=== PATIENT | male | born 1990 | race Caucasian/White ===

== ENCOUNTER 2019-10-09 15:48 | Emergency (ER) | payer OTHER ==
[~2019-10-09] VITALS: Ht 172.7 cm; Wt 90.7 kg
[2019-10-09 16:03] VITALS: BP_SYST 151
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
--- NOTE | 2019-10-09 18:40 | NUR ---
Patient given written and verbal discharge instructions and verbalizes understanding. ER MD discussed with patient the results and treatment provided. Patient in stable condition. ID arm band removed. Rx of Soma and Motrin given. Patient educated on pain management and to follow up with PMD. Pain Scale 3/10. Opportunity for questions provided and answered. Medication side effect fact sheet provided.
[2019-10-09 19:41] VITALS: BP_SYST 143
== END 2019-10-09 18:40 | disposition home or self-care (01) ==
LOC: SED 15:48
DX: S13.4XXA Sprain of ligaments of cervical spine, initial encounter (principal); V49.49XA Driver injured in collision with other motor vehicles in traffic accident, initial encounter; Y93.89 Activity, other specified; Y92.488 Other paved roadways as the place of occurrence of the external cause; Y99.8 Other external cause status
CPT/HCPCS: 72040-TC; 72100-TC; 99284

== ENCOUNTER 2020-02-14 21:08 | Emergency (ER) | payer OTHER ==
[~2020-02-14] VITALS: Ht 172.7 cm; Wt 93.0 kg
[2020-02-14 21:23] VITALS: BP_SYST 139
--- NOTE | 2020-02-14 21:27 | NUR ---
Patient triaged and placed in waiting room. VSS and patient appears in no acute distress at this time. Accompanied by self, awaiting available bed, and MD notified of need for MSE.
--- NOTE | 2020-02-14 21:30 | NUR ---
Pt brought in by self. Pt awake, alert, oriented x4. Pt has chief complaint of headache, dizzness, lightheadedness. No syncope. No Vomiting, diarrhea, shortness of breath, chest pain, pt denies any other medical complaint at this time. Pt resting in ed without distress.
--- NOTE | 2020-02-14 21:30 | NUR ---
Patient to ER bed 02 to gown for evaluation. Side rails up.
--- NOTE | 2020-02-14 21:30 | NUR ---
Note undone in EDM - 02/14/20 at 2350 by [email or web address] Pt brought into ED by family member. Pt awake, alert, oriented x4. Pt states that she has had n/v/d x4 hours intermittent. Pt states that she began to have symptoms after eating pastrami sandwich. Pt denies chest pain, shortness of breath, blood in stool or vomit. Pt denies any other medical complaint at this time. Pt resting in ed Bed comfortably.
--- NOTE | 2020-02-14 22:00 | NUR ---
ER at bedside examining patient.
[2020-02-14] MEDS ORDERED: NACL 0.9% 1,000 ML IV ONE (22:41)
[2020-02-14] MEDS ORDERED: MECLIZINE HCL 25 MG TABLET (ANITVERT) PO ONE (22:45)
--- NOTE | 2020-02-14 23:15 | NUR ---
Pt resting in ED bed comfortably. No distress at this time.
[2020-02-14 23:32] LABS: BASOPHILS # (AUTO) 0.1 K/uL (0.0-0.2); BASOPHILS % (AUTO) 0.5 % (0.0-2.0); HEMATOCRIT 45.3 % (36-54); HEMOGLOBIN 15.4 g/dL (14.0-18.0); LYMPHOCYTES # (AUTO) 1.3 K/uL (1.0-5.5); LYMPHOCYTES % (AUTO) 12.5 % (20.5-51.5); MEAN CORPUSCULAR HEMOGLOBIN 30 pg (27-31); MEAN CORPUSCULAR HGB CONC 34 % (32-36); MEAN CORPUSCULAR VOLUME 87 fL (79.0-98.0); MONOCYTES # (AUTO) 0.5 K/uL (0.0-1.0); MONOCYTES % (AUTO) 4.8 % (1.7-9.3); NEUTROPHILS # (AUTO) 8.8 K/uL (1.8-7.7); NEUTROPHILS % (AUTO) 82.2 % (40.0-70.0); PLATELET COUNT (AUTO) 254 K/uL (130-430); RED BLOOD CELL COUNT(AUTO) 5.21 MIL/uL (4.2-6.2); RED CELL DISTRIBUTION WIDTH 13.7 % (9.0-15.0); WHITE BLOOD COUNT (AUTO) 10.8 K/uL (4.8-10.8)
[2020-02-14 23:34] LABS: BILIRUBIN,URINE NEGATIVE (NEGATIVE); BLOOD, URINE NEGATIVE (NEGATIVE); CLARITY/URINE CLEAR (CLEAR); COLOR,URINE YELLOW (YELLOW); GLUCOSE,URINE NEGATIVE (NEGATIVE); KETONES,URINE NEGATIVE (NEGATIVE); LEUKOCYTE ESTERASE ,URINE NEGATIVE (NEGATIVE); NITRITE, URINE NEGATIVE (NEGATIVE); PH,URINE 6.5 (5.0-8.0); PROTEIN URINE NEGATIVE (NEGATIVE)
[2020-02-14 23:35] LABS: CALCIUM 9.5 mg/dL (8.4-11.0); CREATININE 1.04 mg/dL (0.55-1.30); POTASSIUM 3.9 mmol/L (3.5-5.1)
[2020-02-14 23:40] LABS: ALBUMIN 4.2 g/dL (3.4-4.8); TOTAL BILIRUBIN 0.3 mg/dL (0.0-1.0)
[2020-02-14 23:49] LABS: BARBITURATE, URINE NEGATIVE (NEG <=200); BENZODIAZEPINE, URINE NEGATIVE (NEG <=150); CANNABINOID, URINE NEGATIVE (NEG <=50); COCAINE, URINE NEGATIVE (NEG <=150); METHAMPHETAMINES SCREEN,URINE NEGATIVE (NEG <=500); OPIATE, URINE NEGATIVE (NEG <=100); PHENCYCLIDINE SCREEN,URINE NEGATIVE (NEG <=25); UR TRICYCLIC ANTIDEPRESSANTS NEGATIVE (NEG <=300); URINE AMPHETAMINE NEGATIVE (NEG <=500); URINE METHADONE NEGATIVE (NEG <=200); URINE OXYCODONE SCREEN NEGATIVE (NEG <=100); URINE PROPOXYPHENE SCREEN NEGATIVE (NEG <=300)
[2020-02-15 00:44] VITALS: BP_SYST 139
--- NOTE | 2020-02-15 00:44 | NUR ---
Patient given written and verbal discharge instructions and verbalizes understanding. ER MD discussed with patient the results and treatment provided. Patient in stable condition. ID arm band removed. IV catheter removed intact and dressing applied, no active bleeding. Rx of Antivert given. Patient educated on pain management and to follow up with PMD. Pain Scale 0/10. Opportunity for questions provided and answered. Medication side effect fact sheet provided.
== END 2020-02-15 00:44 | disposition home or self-care (01) ==
LOC: SED 21:08
DX: R42 Dizziness and giddiness (principal); R11.2 Nausea with vomiting, unspecified
CPT/HCPCS: 36415; 71045; 80053; 80307; 81003; 84484; 85025; 93005; 96360; 99285; J7030; J8597

== ENCOUNTER 2021-03-25 12:04 | Emergency (ER) | payer OTHER ==
[~2021-03-25] VITALS: Ht 172.7 cm; Wt 95.3 kg
[2021-03-25 12:06] VITALS: BP_SYST 150
--- NOTE | 2021-03-25 12:06 | NUR ---
Pt triaged and placed in waiting room
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
--- NOTE | 2021-03-25 12:30 | NUR ---
ER at bedside examining patient.
[2021-03-25] MEDS ORDERED: IBUP-1969 PO (12:56)
[2021-03-25] MEDS ORDERED: AMOX-426 PO (13:05)
[2021-03-25 13:19] VITALS: BP_SYST 150
--- NOTE | 2021-03-25 13:20 | NUR ---
Patient given written and verbal discharge instructions and verbalizes understanding. ER MD discussed with patient the results and treatment provided. Patient in stable condition. ID arm band removed. Rx of Keflex and Augmentin given. Patient educated on pain management and to follow up with PMD. Pain Scale 0/10. Opportunity for questions provided and answered. Medication side effect fact sheet provided.
== END 2021-03-25 13:20 | disposition home or self-care (01) ==
LOC: SED 12:04
DX: S61.411A Laceration without foreign body of right hand, initial encounter (principal); Z79.899 Other long term (current) drug therapy; Y04.0XXA Assault by unarmed brawl or fight, initial encounter; Y93.89 Activity, other specified; Y92.89 Other specified places as the place of occurrence of the external cause; Y99.8 Other external cause status
CPT/HCPCS: 99283

== ENCOUNTER 2021-10-28 04:11 | Emergency (ER) | payer OTHER ==
[~2021-10-28] VITALS: Ht 172.7 cm; Wt 86.2 kg
[~2021-10-28 04:11] MED LIST: AMOX-426 PO; IBUP-1969 PO
[2021-10-28 04:32] VITALS: BP_SYST 125
--- NOTE | 2021-10-28 04:32 | NUR ---
Patient to ER bed 7 to gown for evaluation. Side rails up. Report given to Erinn HODGSON.
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
--- NOTE | 2021-10-28 05:06 | NUR ---
ARCADIO ANDERSON AT THE BEDSIDE TO INTERVIEW PT REGARDING RIGHT HAND LACERATION.
--- NOTE | 2021-10-28 05:13 | NUR ---
PT EXPLAINED INJURY TO LIZETH AT THE BEDSIDE, NO CRIMINAL REPORT WAS MADE BY OFFICER.
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
[2021-10-28] MEDS ORDERED: CEPH-548 PO (06:26)
[2021-10-28] MEDS ORDERED: BACEYEO OP (06:26)
[2021-10-28] MEDS ORDERED: BACI15OI13 TP (06:42)
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
== END 2021-10-28 06:57 | disposition home or self-care (01) ==
LOC: SED 04:11
DX: S61.214A Laceration without foreign body of right ring finger without damage to nail, initial encounter (principal); S61.216A Laceration without foreign body of right little finger without damage to nail, initial encounter; S61.212A Laceration without foreign body of right middle finger without damage to nail, initial encounter; F17.200 Nicotine dependence, unspecified, uncomplicated; Z79.899 Other long term (current) drug therapy; W26.0XXA Contact with knife, initial encounter; Y93.89 Activity, other specified; Y92.89 Other specified places as the place of occurrence of the external cause; Y99.8 Other external cause status
CPT/HCPCS: 99283